=== PATIENT | male | born 1970 | race Caucasian/White ===

== ENCOUNTER 2018-10-06 07:03 | Emergency (ER) | payer BC, MEDICAID ==
[2018-10-06 07:20] VITALS: BP 115/68
[2018-10-06] MEDS ORDERED: Fluorescein Sodium TOPICAL* 1 MG TEST STRIP OPHTHALMIC ONE (07:25)
[2018-10-06] MEDS ORDERED: Tetracaine 0.5% OPTH.SOL 15ML* BTL LEFT EYE ONE (07:27)
[2018-10-06] MEDS ORDERED: Tetracaine 0.5% OPTH.SOL 4 ML* 1 DROP BTL LEFT EYE ONE (07:30)
--- NOTE | 2018-10-06 07:30 | ED ---
Throat Pain/Nasal Congestion - HPI Summary HPI Summary: 48 yo WM presents with profuse left eye watery d/c associated with photophobia and eye pain. Pt is a [place] and was cutting metal yesterday with a face mask and goggles. Denies yellow crusty d/c or allergies, currently on abx for cold and sinus sx. - History of Current Complaint Chief Complaint: UCEye Time Seen by Provider: 10/06/18 07:21 Hx Obtained From: Patient Onset/Duration: Sudden Onset Severity: Moderate Associated Signs And Symptoms: Positive: Nasal Discharge Cough: Nonproductive - Allergies/Home Medications Allergies/Adverse Reactions: Allergies Allergy/AdvReac Type Severity Reaction Status Date / Time No Known Allergies Allergy Verified 10/15/15 16:34 Home Medications: Home Medications Amoxicillin PO (*) [Amoxicillin 875 MG (*)] 875 mg PO BID 10/06/18 [History Confirmed 10/06/18] Gabapentin CAP(*) [Neurontin 100 mg CAP(*)] 300 mg PO BID 10/06/18 [History Confirmed 10/06/18] PMH/Surg Hx/FS Hx/Imm Hx Endocrine/Hematology History: Denies: Hx Diabetes, Hx Thyroid Disease Cardiovascular History: Denies: Hx Hypertension Respiratory History: Denies: Hx Asthma, Hx Chronic Obstructive Pulmonary Disease (COPD) GI History: Denies: Hx Ulcer Infectious Disease History: No Infectious Disease History: Denies: Hx Hepatitis, Hx Human Immunodeficiency Virus (HIV), Traveled Outside the [place] in Last 30 Days - Family History Known Family History: Positive: None - Social History Alcohol Use: Rare Substance Use Type: Reports: None Smoking Status (MU): Light Every Day Tobacco Smoker Type: Cigars Review of Systems Constitutional: Negative Positive: Photophobia Positive: Nasal Discharge, Other Cardiovascular: Negative - left eye pain Respiratory: Negative Gastrointestinal: Negative Positive: no symptoms reported Musculoskeletal: Negative Skin: Negative Neurological: Negative All Other Systems Reviewed And Are Negative: Yes Physical Exam Vital Signs On Initial Exam: Initial Vitals Temp Pulse Resp BP Pulse Ox 36.7 C 68 16 115/68 95 10/06/18 07:14 10/06/18 07:14 10/06/18 07:14 10/06/18 07:14 10/06/18 07:14 Vital Signs Reviewed: Yes Appearance: Positive: No Pain Distress Skin: Positive: Warm Eyes: Positive: Conjunctiva Inflammed, Discharge - 2mm FB lodged in 9 O'clock postion of left eye ENT: Positive: Normal ENT inspection Neck: Positive: Supple Respiratory/Lung Sounds: Positive: Clear to Auscultation Cardiovascular: Positive: Normal, RRR, S1, S2 Abdomen Description: Positive: Nontender, Soft Musculoskeletal: Positive: Normal Neurological: Positive: Normal Diagnostics - Vital Signs Vital Signs Temp Pulse Resp BP Pulse Ox 10/06/18 07:14 36.7 C 68 16 115/68 95 - Laboratory Lab Statement: Any lab studies that have been ordered have been reviewed, and results considered in the medical decision making process. EENT Course/Dx - Course Course Of Treatment: FB in left cornea- at 9O'clock position, gentle manual lift of small 1-2mm metal shard done with 25G needle successful, under tetracaine and flourecein dye - Differential Diagnoses Differential Diagnoses: Abrasion, Foreign Body - Diagnoses Provider Diagnoses: FB eye Discharge - Sign-Out/Discharge Documenting (check all that apply): Patient Departure All imaging exams completed and their final reports reviewed: Yes - Discharge Plan Condition: Stable Disposition: HOME Patient Education Materials: Eye Foreign Body (ED) Additional Instructions: PLEASE GO TO DR OSBORNE'S OFFICE AFTER D/C FOR FURTHER EVALUATION AND MANAGEMENT - Billing Disposition and Condition Condition: STABLE Disposition: Home
[2018-10-06] MEDS ORDERED: Erythromycin OPTH OINT* APPLIC OINT ONE (07:47)
[2018-10-06] MEDS ORDERED: Erythromycin OPTH OINT* APPLIC OINT LEFT EYE ONE (07:51)
== END 2018-10-06 08:12 | disposition home or self-care (01) ==
LOC: UCEAST 07:03
DX: T15.02XA Foreign body in cornea, left eye, initial encounter (principal); X58.XXXA Exposure to other specified factors, initial encounter; Y93.89 Activity, other specified; Y92.9 Unspecified place or not applicable; F17.290 Nicotine dependence, other tobacco product, uncomplicated
CPT/HCPCS: 65220; 99213; A9270-GY; G0463

== ENCOUNTER 2018-10-28 14:57 | Emergency (ER) | payer BC ==
[2018-10-28 15:31] VITALS: BP 138/73
--- NOTE | 2018-10-28 16:02 | UC ---
Skin Complaint HPI - HPI Summary HPI Summary: 48-year-old male comes in with a chief complaint of infection on his face. It has been going on about a week. His areas that are swollen. Pus has drained. He does have a aguilar. He has been putting hydrogen peroxide on it everyday. No fevers or chills. No known Hx MRSA. - History of Current Complaint Chief Complaint: UCGeneralIllness Time Seen by Provider: 10/28/18 15:49 Stated Complaint: SORES ON FACE Pain Intensity: 8 - Allergy/Home Medications Allergies/Adverse Reactions: Allergies Allergy/AdvReac Type Severity Reaction Status Date / Time No Known Allergies Allergy Verified 10/28/18 15:33 PMH/Surg Hx/FS Hx/Imm Hx Previously Healthy: Yes - NO KNOWN HX MRSA GI/ History: Gastroesophageal Reflux - Surgical History Surgical History: None - Family History Known Family History: Positive: None - Social History Alcohol Use: Rare Substance Use Type: None Smoking Status (MU): Light Every Day Tobacco Smoker Type: Cigars Review of Systems All Other Systems Reviewed And Are Negative: Yes Constitutional: Positive: Negative Skin: Positive: Other - see hpi Eyes: Positive: Negative ENT: Positive: Negative Respiratory: Positive: Negative Cardiovascular: Positive: Negative Gastrointestinal: Positive: Negative Motor: Positive: Negative Neurovascular: Positive: Negative Musculoskeletal: Positive: Negative Neurological: Positive: Negative Psychological: Positive: Negative Is Patient Immunocompromised?: No Physical Exam Triage Information Reviewed: Yes Appearance: Well-Appearing, No Pain Distress, Well-Nourished Vital Signs: Initial Vital Signs Temp 99.3 F 10/28/18 15:23 Pulse 65 10/28/18 15:23 Resp 16 10/28/18 15:23 BP 138/73 10/28/18 15:23 Pulse Ox 98 10/28/18 15:23 Vital Signs Reviewed: Yes Eye Exam: Normal Eyes: Positive: Conjunctiva Clear ENT: Negative: Nasal congestion Neck exam: Normal Neck: Positive: Supple Respiratory: Positive: No respiratory distress Musculoskeletal Exam: Normal Musculoskeletal: Positive: Strength Intact, ROM Intact Neurological Exam: Normal Neurological: Positive: Alert, Muscle Tone Normal Psychological Exam: Normal Psychological: Positive: Normal Response To Family, Age Appropriate Behavior Skin: Positive: Other - Folliculitis on face in aguilar. Left cheek and chin. Swelling on chin. No drainable site at this time. Course/Dx - Diagnoses Provider Diagnosis: Folliculitis, Abscess of face Discharge - Sign-Out/Discharge Documenting (check all that apply): Patient Departure All imaging exams completed and their final reports reviewed: No Studies - Discharge Plan Condition: Stable Disposition: HOME Prescriptions: DOXYcycline CAP(*) [DOXYcycline 100MG CAP(*)] 100 mg PO BID #20 cap Mupirocin 1 applic TOPICAL TID #22 gm Patient Education Materials: Folliculitis (ED), Abscess (ED) Referrals: Froy Menendez MD [Primary Care Provider] - Additional Instructions: FOLLOW UP WITH YOUR DOCTOR IF NOT COMPLETELY IMPROVED. GET RECHECKED SOONER FOR ANY WORSENING OF YOUR CONDITION OR QUESTIONS OR CONCERNS. - Billing Disposition and Condition Condition: STABLE Disposition: Home
== END 2018-10-28 16:16 | disposition home or self-care (01) ==
LOC: UCEAST 14:57
DX: L73.9 Follicular disorder, unspecified (principal); L02.01 Cutaneous abscess of face; F17.290 Nicotine dependence, other tobacco product, uncomplicated
CPT/HCPCS: 87070; 87077; 87186; 87205; 87640; 87641; 99212; G0463

== ENCOUNTER 2019-04-18 06:39 | Emergency (ER) | payer BC, OTHER ==
[2019-04-18] MEDS ORDERED: Clindamycin 600 MG/D5W BAG(*) 600 MG/50 ML BAG IV ONE (07:03)
--- NOTE | 2019-04-18 07:17 | ED ---
Lower Extremity - HPI Summary HPI Summary: 48 year old male presents with erythema to right knee for the past couple days. He states that he is working on concrete and felt something go into his knee. He states that he had like a pimple to the area so he popped it and nothing seemed to come out. He states that since then the past day developed redness around the area that has been spreading. He states he is able to ambulate but it hurts. He has full range of motion of his knee. No previous surgeries to the knee. No previous injury to the knee. No fevers or chills. He is not diabetic. Also need sutures removed from right hand that were placed 2 weeks ago. - History of Current Complaint Chief Complaint: EDExtremityLower Stated Complaint: KNEE PAIN PER PT Time Seen by Provider: 04/18/19 06:47 Pain Intensity: 5 - Allergies/Home Medications Allergies/Adverse Reactions: Allergies Allergy/AdvReac Type Severity Reaction Status Date / Time No Known Allergies Allergy Verified 04/18/19 07:02 Home Medications: Home Medications Pantoprazole TAB * 40 mg PO DAILY 04/18/19 [History Confirmed 04/18/19] PMH/Surg Hx/FS Hx/Imm Hx Endocrine/Hematology History: Denies: Hx Diabetes, Hx Thyroid Disease Cardiovascular History: Denies: Hx Hypertension Respiratory History: Denies: Hx Asthma, Hx Chronic Obstructive Pulmonary Disease (COPD) GI History: Denies: Hx Ulcer Infectious Disease History: No Infectious Disease History: Denies: Hx Hepatitis, Hx Human Immunodeficiency Virus (HIV), Traveled Outside the [place] in Last 30 Days - Family History Known Family History: Positive: None - Social History Alcohol Use: None Substance Use Type: Reports: None Smoking Status (MU): Light Every Day Tobacco Smoker Type: Cigars Review of Systems Negative: Fever Negative: Chest Pain Negative: Shortness Of Breath Positive: Myalgia - right knee pain Positive: Rash All Other Systems Reviewed And Are Negative: Yes Physical Exam Triage Information Reviewed: Yes Vital Signs On Initial Exam: Initial Vitals Temp Pulse Resp BP Pulse Ox 98 F 84 15 147/78 97 04/18/19 06:40 04/18/19 06:40 04/18/19 06:40 04/18/19 06:40 04/18/19 06:40 Vital Signs Reviewed: Yes Appearance: Positive: Well-Appearing Skin: Positive: Warm, Dry, Other - erythema around small area of edema below right knee that is warm to touch Head/Face: Positive: Normal Head/Face Inspection Eyes: Positive: Normal, Conjunctiva Clear ENT: Positive: Pharynx normal Respiratory/Lung Sounds: Positive: Clear to Auscultation, Breath Sounds Present Cardiovascular: Positive: Normal, RRR Musculoskeletal: Positive: Strength/ROM Intact - right knee, Other - good pulses Neurological: Positive: Normal Psychiatric: Positive: Normal Diagnostics - Vital Signs Vital Signs Temp Pulse Resp BP Pulse Ox 04/18/19 06:40 98 F 84 15 147/78 97 - Laboratory Result Diagrams: 04/18/19 07:09 04/18/19 07:09 Lab Statement: Any lab studies that have been ordered have been reviewed, and results considered in the medical decision making process. - Radiology knee Radiology Interpretation Completed By: Radiologist Summary of Radiographic Findings: SOFT TISSUE SWELLING. NO ACUTE OSSEOUS INJURY. IF SYMPTOMS PERSIST, RECOMMEND REPEAT IMAGING. - Ultrasound No standard instances Ultrasound Interpretation Completed By: Radiologist Summary of Ultrasound Findings: IMPRESSION: EXTENSIVE SUBCUTANEOUS EDEMA, WITH SOME COMPONENT OF HEMORRHAGE. THERE IS NO LOCULATED FLUID COLLECTION TO SUGGEST ABSCESS. THERE IS NO SHADOWING FOREIGN BODY. Re-Evaluation - Re-Evaluation First Eval Re-Evaluation Time: 08:39 Comment: discussed results Lower Extremity Course/Dx - Course Course Of Treatment: 48 year old male presents with erythema to right knee for the past couple days. He states that he is working on concrete and felt something go into his knee. He states that he had like a pimple to the area so he popped it and nothing seemed to come out. He states that since then the past day developed redness around the area that has been spreading. He states he is able to ambulate but it hurts. He has full range of motion of his knee. No previous surgeries to the knee. No previous injury to the knee. No fevers or chills. He is not diabetic. Also need sutures removed from right hand that were placed 2 weeks ago. On exam has erythema below right knee extending to side of knee and down [place]. Full range of motion knee. No area of loculation felt. Gave dose of IV Clinda. xray no foreign body. do not suspect septic arthritis as erythema does not cover entire knee and has full ROM without pain. wbc 11. crp elevated. knee xray soft tissue swelling. u/s shows no abscess and no abscess felt on physical exam. also removed suture right arm. will place patient on clindamycin. will have follow up with primary. told if symptoms worsen to return. patient understand and agrees with plan. - Diagnoses Differential Diagnosis/HQI/PQRI: Positive: Cellulitis, Foreign Body, Septic Arthritis, Other - abscess Provider Diagnoses: Visit for suture removal, Cellulitis of right leg Discharge ED - Sign-Out/Discharge Documenting (check all that apply): Patient Departure Patient Received Moderate/Deep Sedation with Procedure: No - Discharge Plan Condition: Good Disposition: HOME Prescriptions: Clindamycin Cap(NF) [Clindamycin Cap 300 mg Cap(NF)] 300 mg PO TID #29 cap Patient Education Materials: Cellulitis (ED) Forms: *Work Release Referrals: Froy Menendez MD [Primary Care Provider] - Additional Instructions: Take clindamycin three times a day for 10 days, first dose given in ED apply warm compresses to area Elevate extremity Take Tylenol or ibuprofen every 6 hours for pain or fever Follow up with primary within 3 days Return to ED if redness spreads after two days on antibiotics or any new or worsening symptoms - Billing Disposition and Condition Condition: GOOD Disposition: Home
[2019-04-18 07:22] LABS: ABS Basophils 0.1 10^3/ul (0-0.2); ABS Eosinophils 0.1 10^3/ul (0-0.6); ABS Lymphocytes 1.3 10^3/ul (1.0-4.8); ABS Neutrophils 8.4 10^3/ul (1.5-7.7); Eosinophil % 1.2 %; Hematocrit 39 % (42-52); Hemoglobin 13.1 g/dL (14.0-18.0); Lymphocyte % 12.1 %; Mean Corpuscular HGB Conc 34 g/dL (31-36); Mean Corpuscular Hemoglobin 29 pg (27-31); Mean Corpuscular Volume 87 fL (80-94); Mean Platelet Volume 7.2 fL (7.4-10.4); Platelet Count 286 10^3/uL (150-450); Red Blood Count 4.45 10^6 /uL (4.18-5.48); Red Cell Distribution Width 14 % (10-15)
[2019-04-18 07:40] LABS: Albumin 4.2 g/dL (3.2-5.2); Albumin/Globulin Ratio 1.7 (1-3); BUN/Creatinine Ratio 13.8 (8-20); C Reactive Protein 109.06 mg/L (<8.01); Calcium 9.2 mg/dL (8.6-10.3); EGFR African American 103.6 (>60); EGFR Non-African American 85.7 (>60); Globulin 2.5 g/dL (2-4); Potassium 4.2 mmol/L (3.5-5.0); Total Bilirubin 0.5 mg/dL (0.2-1.0); Total Protein 6.7 g/dL (6.4-8.9)
[2019-04-18 09:04] VITALS: BP 121/75
== END 2019-04-18 09:03 | disposition home or self-care (01) ==
LOC: ED 06:39
DX: L03.115 Cellulitis of right lower limb (principal); R60.0 Localized edema; S61.411D Laceration without foreign body of right hand, subsequent encounter; W45.8XXD Other foreign body or object entering through skin, subsequent encounter; F17.290 Nicotine dependence, other tobacco product, uncomplicated
CPT/HCPCS: 36415; 80053; 83605; 85025; 86140; 87040; 96365; 99282